=== PATIENT | female | born 1990 | race Two or more races ===

== ENCOUNTER 2019-08-15 06:58 | Inpatient (IN) | payer OTHER ==
[~2019-08-15] VITALS: Ht 157.5 cm; Wt 108.0 kg
[2019-08-15] MEDS ORDERED: PRENATAL TABLE1 EAC1 PO (08:13)
[2019-08-15] MEDS ORDERED: FOLBEE PLUS CZ1 EACH PO (08:14)
== END 2019-08-17 14:46 | disposition home or self-care (01) | DRG 807 ==
LOC: LDR 06:58 → OB/GYN 19:57
PROVIDERS: ADMIT Obstetrics & Gynecology
PROC: 10E0XZZ Delivery of Products of Conception, External Approach (ICD-10-PCS; principal; 2019-08-15)
PROC: 10907ZC Drainage of Amniotic Fluid, Therapeutic from Products of Conception, Via Natural or Artificial Opening (ICD-10-PCS; 2019-08-15)
PROC: 3E033VJ Introduction of Other Hormone into Peripheral Vein, Percutaneous Approach (ICD-10-PCS; 2019-08-15)
PROC: 4A1HXCZ Monitoring of Products of Conception, Cardiac Rate, External Approach (ICD-10-PCS; 2019-08-15)
DX: O80 Encounter for full-term uncomplicated delivery (principal); Z37.0 Single live birth; Z3A.39 39 weeks gestation of pregnancy

== ENCOUNTER 2021-02-25 07:32 | Inpatient (IN) | payer OTHER ==
[~2021-02-25] VITALS: Ht 157.5 cm; Wt 111.1 kg
[~2021-02-25 07:32] MED LIST: FOLBEE PLUS CZ1 EACH PO; PRENATAL TABLE1 EAC1 PO
== END 2021-02-26 01:50 | disposition home or self-care (01) | DRG 819 ==
LOC: ER 07:32 → O/R 07:56 → SEC-K 13:34 → O/R 13:34
PROVIDERS: ADMIT Obstetrics & Gynecology; ATTEND Obstetrics & Gynecology
PROC: 10A07ZZ Abortion of Products of Conception, Via Natural or Artificial Opening (ICD-10-PCS; principal; 2021-02-25 13:30)
DX: O36.4XX0 Maternal care for intrauterine death, not applicable or unspecified (principal); Z3A.09 9 weeks gestation of pregnancy; Z37.9 Outcome of delivery, unspecified; Z20.822 Contact with and (suspected) exposure to COVID-19

== ENCOUNTER 2024-06-18 13:38 | Outpatient (CLI) | payer OTHER | END 2024-06-18 13:39 | disposition home or self-care (01) | LOC: PRENATAL 13:38 | PROVIDERS: ATTEND Obstetrics & Gynecology Maternal & Fetal Medicine | DX: Z34.82 Encounter for supervision of other normal pregnancy, second trimester (principal); O44.00 Complete placenta previa NOS or without hemorrhage, unspecified trimester; O09.529 Supervision of elderly multigravida, unspecified trimester; O99.210 Obesity complicating pregnancy, unspecified trimester; Z3A.21 21 weeks gestation of pregnancy ==

== ENCOUNTER 2024-09-24 09:39 | Outpatient (CLI) | payer OTHER | END 2024-09-24 09:42 | disposition home or self-care (01) | LOC: PRENATAL 09:39 | PROVIDERS: ATTEND Obstetrics & Gynecology Maternal & Fetal Medicine | DX: O26.849 Uterine size-date discrepancy, unspecified trimester (principal); O36.8199 Decreased fetal movements, unspecified trimester, other fetus; Z3A.35 35 weeks gestation of pregnancy ==

== ENCOUNTER 2024-10-18 05:22 | Inpatient (IN) | payer OTHER ==
[~2024-10-18] VITALS: Ht 157.5 cm; Wt 113.4 kg
[2024-10-18 05:40] VITALS: BP 126/61
[2024-10-18] MEDS ORDERED: RINGERS SOLUTION,LACTATED 1,000 ML IV SCH (06:30)
[2024-10-18] MEDS ORDERED: AMPICILLIN SODIUM 2,000 MG VIAL IV ONE (06:30)
[2024-10-18 06:31] LABS: PH,URINE 6.5 (5.0-8.0); URINE APPEARANCE Clear; URINE BILIRRUBIN Negative (NEGATIVE); URINE BLOOD Negative; URINE COLOR Yellow; URINE GLUCOSE Negative (NEGATIVE); URINE KETONE Negative (NEGATIVE); URINE LEUKOCYTE Small; URINE NITRATE Negative; URINE PROTEIN Negative (NEGATIVE); URINE UROBILINOGEN 0.2 E.U./dl
[2024-10-18 06:36] LABS: URINE EPITHELIAL CELLS 81.8 uL (0.0-38.8); URINE RBC 3.9 uL (0.0-20.8); URINE WBC 22.4 uL (0.0-23.2)
[2024-10-18 06:46] LABS: HEMOGLOBIN 11.8 g/dL (12.0-15.00); MEAN CORPUSCULAR HEMOGLOBIN 28.1 pg (27.00-32.0); MEAN CORPUSCULAR HGB CONC 33.8 g/dl (32.0-36.0); PLATELET COUNT 245 K/uL (150-450); RED BLOOD COUNT 4.21 M/uL (4.00-6.00)
[2024-10-18 06:49] LABS: INR 0.94; PARTIAL THROMBOPLASTIN TIME 27.9 SECONDS (22.0-34.0); PROTHROMBIN TIME 10.3 SECONDS (9.0-11.5)
[2024-10-18 07:10] LABS: URINE CAST 0.14 uL (0.0-1.40)
[2024-10-18 07:29] VITALS: BP 127/67
[2024-10-18] MEDS ORDERED: AMPICILLIN SODIUM 1,000 MG VIAL IV SCH (09:00)
[2024-10-18] MEDS ORDERED: AMPICILLIN SODIUM 1,000 MG VIAL ONE ×4 (09:06→20:49)
[2024-10-18] MEDS ORDERED: OXYTOCIN 20 UNITS/500ML RL PIGGYBAG IV ONE (10:14)
[2024-10-18] MEDS ORDERED: OXYTOCIN 20 UNITS/500ML RL PIGGYBAG IV SCH (11:00)
[2024-10-18 11:41] VITALS: BP 118/67
[2024-10-18 15:12] VITALS: BP 126/58
[2024-10-18] MEDS ORDERED: MEPERIDINE HCL/PF 50 MG/ML VIAL IV STA (15:48)
[2024-10-18] MEDS ORDERED: PROMETHAZINE HCL 25 MG/ML AMPUL IV STA (15:49)
[2024-10-18] MEDS ORDERED: PROMETHAZINE HCL 25 MG/ML AMPUL ONE (16:02)
[2024-10-18 19:14] VITALS: BP 130/56
[2024-10-18] MEDS ORDERED: OXYTOCIN 20 UNITS/1000ML RL PIGGYBAG IV ONE (20:54)
[2024-10-18 23:09] VITALS: BP 116/61
[2024-10-18] MEDS ORDERED: ACETAMINOPHEN 500 MG GEL..CAP PO PRN (23:45)
[2024-10-18] MEDS ORDERED: CHLORHEXIDINE GLUCONATE 120 ML BOTTLE TP SCH (23:45)
[2024-10-18] MEDS ORDERED: OXYTOCIN 1,000 ML IV SCH (23:45)
[2024-10-19 00:42] VITALS: BP 119/72
[2024-10-19 02:02] LABS: HEMATOCRIT 37.5 % (36.0-45.00); HEMOGLOBIN 12.4 g/dL (12.0-15.00); MEAN CORPUSCULAR HEMOGLOBIN 27.5 pg (27.00-32.0); MEAN CORPUSCULAR HGB CONC 33.1 g/dl (32.0-36.0); PLATELET COUNT 257 K/uL (150-450); RED BLOOD COUNT 4.51 M/uL (4.00-6.00); RED CELL DISTRIBUTION WIDTH 14.9 % (11.5-14.5)
[2024-10-19 08:11] VITALS: BP 113/66
[2024-10-19] MEDS ORDERED: PNV,CALCIUM 72/IRON/FOLIC ACID 1 TAB TABLET PO SCH (09:00)
[2024-10-19 16:00] VITALS: BP 118/62
[2024-10-20 01:17] VITALS: BP 119/77
[2024-10-20 07:57] VITALS: BP 123/67
== END 2024-10-20 14:41 | disposition home or self-care (01) | DRG 807 ==
LOC: LDR → OB/GYN 08:51
PROVIDERS: ADMIT Obstetrics & Gynecology; ATTEND Obstetrics & Gynecology
PROC: 10E0XZZ Delivery of Products of Conception, External Approach (ICD-10-PCS; principal; 2024-10-18)
PROC: 4A1HXCZ Monitoring of Products of Conception, Cardiac Rate, External Approach (ICD-10-PCS; 2024-10-18)
DX: O99.824 Streptococcus B carrier state complicating childbirth (principal); Z37.0 Single live birth; Z3A.38 38 weeks gestation of pregnancy; Z20.822 Contact with and (suspected) exposure to COVID-19